=== PATIENT | male | born 1940 | race Caucasian/White ===

== ENCOUNTER → 2017-09-16 | Outpatient (CLI) | payer MEDICARE, BC | END | disposition home or self-care (01) | LOC: PCVCCLINIC 11:05 | DX: I25.10 Atherosclerotic heart disease of native coronary artery without angina pectoris (principal); I10 Essential (primary) hypertension; G45.9 Transient cerebral ischemic attack, unspecified; E78.00 Pure hypercholesterolemia, unspecified; E11.9 Type 2 diabetes mellitus without complications; I77.9 Disorder of arteries and arterioles, unspecified; I48.0 Paroxysmal atrial fibrillation; R20.0 Anesthesia of skin; R53.83 Other fatigue; R06.02 Shortness of breath; M79.604 Pain in right leg; M79.605 Pain in left leg; R94.31 Abnormal electrocardiogram [ECG] [EKG]; Z79.4 Long term (current) use of insulin; Z87.891 Personal history of nicotine dependence; Z79.899 Other long term (current) drug therapy; Z88.0 Allergy status to penicillin | CPT/HCPCS: 93005; G0463 ==

== ENCOUNTER → 2018-01-25 | Outpatient (CLI) | payer MEDICARE, BC ==
--- NOTE | 2018-01-25 13:53 | PCVCIMAG ---
APPROVED REPORT Study performed: 01/25/2018 13:04:02 EXAM: Comprehensive 2D, Doppler, and color-flow Echocardiogram Patient Location: Echo lab Status: routine BSA: 2.21 HR: 67 bpmBP: 120/78 mmHg Rhythm: Pacemaker Other Information Study Quality: Adequate Indications CVA/TIA Atrial Fibrillation Dyspnea Pacemaker CAD edema 2D Dimensions LVEF(%): 53.10 (>50%) IVSd: 10.65 (7-11mm) LVDd: 60.95 mm PWd: 11.46 (7-11mm) LVDs: 43.96 (25-40mm) Left Atrium: 51.87 (27-40mm) Aortic Root: 34.49 mm LV Single Plane 4CH: 56.47 % LV Single Plane 2CH: 48.64 %Huerta's LVEF: 52.56 % Biplane EF: 53.4 % Volumes Left Atrial Volume (Systole) Single Plane 4CH: 82.51 mLSingle Plane 2CH: 94.69 mL LA ESV Index: 44.00 mL/m2 Aortic Valve AoV Peak Skip.: 1.33 m/s AO Peak Gr.: 7.08 mmHgLVOT Max P.67 mmHg LVOT Max V: 0.96 m/s Mitral Valve E/A Ratio: 2.4 MV Decel. Time: 198.61 ms MV E Max Skip.: 0.90 m/s MV A Skip.: 0.38 m/s MV PHT: 57.60 ms IVRT: 96.89 ms Pulmonary Valve PV Peak Skip.: 0.95 m/sPV Peak Gr.: 3.62 mmHg Pulmonary Vein P Vein S: 0.35 m/s P Vein D: 0.81 m/s P Vein S/D Ratio: 0.43 Tricuspid Valve TR Peak Skip.: 3.82 m/s TR Peak Gr.: 58.23 mmHg Left Ventricle Left ventricle is mildly dilated to 6.1 cm. There is normal LV segmental wall motion. There is normal left ventricular wall thickness. Left ventricular systolic function is normal. The left ventricular ejection fraction is within the normal range. LVEF is 55-60%. 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 Right Ventricle The right ventricle is normal size. The right ventricular systolic function is normal. Atria Left atrium is moderately dilated. Right atrium is moderately dilated. Aortic Valve The aortic valve is normal in structure. No aortic regurgitation is present. There is no aortic valvular stenosis. Mitral Valve The mitral valve is normal in structure. Moderate mitral regurgitation. No evidence of mitral valve stenosis. Tricuspid Valve The tricuspid valve is normal in structure. Mild-moderate tricuspid regurgitation with elevated PAP of 65 mmHg. Pulmonic Valve The pulmonary valve is normal in structure. There is trace pulmonic valvular regurgitation. Great Vessels The aortic root is normal in size. IVC is normal in size and collapses with >50% inspiration Pericardium Trace pericardial effusion localized neart left ventricle measuring 1.1 cm. No hemodynamic changes and no tamponade physiology. There is no pleural effusion. <Conclusion> Left ventricle is mildly dilated to 6.1 cm. LVEF is 55-60%. 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 The right ventricle is normal size. Left atrium is moderately dilated. Right atrium is moderately dilated. The aortic valve is normal in structure. Moderate mitral regurgitation. Mild-moderate tricuspid regurgitation with elevated PAP of 65 mmHg. The aortic root is normal in size. Trace pericardial effusion localized neart left ventricle measuring 1.1 cm. No hemodynamic changes and no tamponade physiology.
== END | disposition home or self-care (01) ==
LOC: PCVCIMAG 14:28
PROVIDERS: ATTEND Internal Medicine Cardiovascular Disease
DX: I10 Essential (primary) hypertension (principal); I08.1 Rheumatic disorders of both mitral and tricuspid valves; E11.9 Type 2 diabetes mellitus without complications; I25.10 Atherosclerotic heart disease of native coronary artery without angina pectoris; I48.91 Unspecified atrial fibrillation; G45.9 Transient cerebral ischemic attack, unspecified; Z79.4 Long term (current) use of insulin; Z88.0 Allergy status to penicillin
CPT/HCPCS: 36415; 93306

== ENCOUNTER → 2018-04-26 | Outpatient (CLI) | payer MEDICARE, BC ==
[~2018-04-26] MED LIST: REGADENOSON 0.4 MG/5 ML DISP.SYRIN. IV ONE
--- NOTE | 2018-04-26 15:59 | PCVCIMAG ---
APPROVED REPORT Imaging Protocol: Rest Tc-99m/Stress Tc-99m 1 day Study performed: 04/26/2018 13:02:29 Indication: Afib, CAD, Pre Op Patient Location: Out-Patient Stress Nurse: Jenny Og RN, Basilia Gross RN IL Tech:Luan Morales ILTCB Ht: 5 ft 10 in Wt: 230 lbs BSA: 2.21 m2 HR: 78 bpm BP: 138/88 mmHg BMI: 32.9 Rhythm: AV Paced, RBBB Medical History Medical History: Age, Afib, CAD, DM, Pacemaker Medications: Norvasc, Eliquis, Clonodin, Clomzepam, Insulin, Altace, Zocor, Demadex Allergies: PCN Pretest Chest Pain Characteristics: No chest pain Exercise History: Sedentary Resting Data Rest SPECT myocardial perfusion imaging was performed in supine position 45 minutes following the intravenous injection of 11.3 mCi of Tc-99m Sestamibi. Time of rest injection: 1220 Date: 04/26/2018 Administration Route: IV Administration Site: Left AC Pharmacologic Stress Pharmacologic stress test was performed by injecting Regadenoson 0.4 mg IV push over 10-15 seconds immediately followed by the intravenous injection of 34.6 mCi of Tc-99m Sestamibi. Time of stress injection: 1330 Date: 04/26/2018 Administration Route: IV Administration Site: Left AC Gated Stress SPECT was performed 45 minutes after stress injection. The images were gated to evaluate regional wall motion and calculate left ventricular ejection fraction. Stress Test Details Stress Test: Pharmacologic stress testing performed using 0.4 mg of regadenoson per 5 mL given IV over 10 seconds. Reason for pharmacologic stress test: Wheelchair Bound. HRMax Heart Rate (APMHR): 144 bpm Resting HR: 78 bpmTarget HR (85% APMHR): 122 bpm Max HR Achieved: 92 bpm % of APMHR: 63 Recovery HR: 90 bpm BP Resting BP: 138/88 mmHg Max BP: 127/69 mmHg Recovery BP: 120/63 mmHg ECG Resting ECG: AV Paced, RBBB Stress ECG: AV Paced, RBBB Arrhythmia: None Recovery ECG: AV Paced, RBBB Clinical Reason for Termination: Completed protocol Stress Symptoms: None Symptoms resolved during recovery. Stress ECG Conclusion non diagnostic Study Quality Study: Good Study Data Post stress, the left ventricular ejection was 29%.. SSS: 8 SRS: 5 SDS: 3 TID = 0.96. Perfusion No evidence of stress induced ischemia or prior myocardial infarction. Nuclear Conclusion No evidence of stress induced ischemia or prior myocardial infarction. Post stress, the left ventricular ejection was 29%. No prior study available for comparison. Interpreted by: oJrge Akers MD Electronically Approved: 04/26/2018 15:41:00 <Conclusion> non diagnostic
== END | disposition home or self-care (01) ==
LOC: PCVCIMAG 11:56
PROVIDERS: ATTEND Internal Medicine Cardiovascular Disease
DX: I48.1 Persistent atrial fibrillation (principal); I25.10 Atherosclerotic heart disease of native coronary artery without angina pectoris; E11.9 Type 2 diabetes mellitus without complications; Z95.0 Presence of cardiac pacemaker
CPT/HCPCS: 78452; 93017; A9500; J2785

== ENCOUNTER → 2018-10-03 | Outpatient (CLI) | payer MEDICARE, BC | END | disposition home or self-care (01) | LOC: PCVCCLINIC 15:00 | PROVIDERS: ATTEND Internal Medicine Cardiovascular Disease | DX: I48.0 Paroxysmal atrial fibrillation (principal); I25.10 Atherosclerotic heart disease of native coronary artery without angina pectoris; E78.00 Pure hypercholesterolemia, unspecified; G45.9 Transient cerebral ischemic attack, unspecified; G20 Parkinson's disease; I45.9 Conduction disorder, unspecified; I10 Essential (primary) hypertension; E78.5 Hyperlipidemia, unspecified; I48.91 Unspecified atrial fibrillation; Z87.891 Personal history of nicotine dependence | CPT/HCPCS: 36415; 80061; 93280; G0463 ==

== ENCOUNTER → 2019-01-02 | Outpatient (CLI) | payer MEDICARE, BC | END | disposition home or self-care (01) | LOC: PCVCCLINIC 13:54 | PROVIDERS: ATTEND Internal Medicine Cardiovascular Disease | DX: I25.10 Atherosclerotic heart disease of native coronary artery without angina pectoris (principal); I48.0 Paroxysmal atrial fibrillation; I10 Essential (primary) hypertension; E78.00 Pure hypercholesterolemia, unspecified; G45.9 Transient cerebral ischemic attack, unspecified; I45.9 Conduction disorder, unspecified; M79.89 Other specified soft tissue disorders; E10.9 Type 1 diabetes mellitus without complications; E78.5 Hyperlipidemia, unspecified; Z88.0 Allergy status to penicillin | CPT/HCPCS: 93279; G0463 ==

== ENCOUNTER → 2019-04-07 | Outpatient (CLI) | payer MEDICARE, BC | END | disposition home or self-care (01) | LOC: PCVCCLINIC 15:30 | PROVIDERS: ATTEND Internal Medicine Cardiovascular Disease | DX: I25.10 Atherosclerotic heart disease of native coronary artery without angina pectoris (principal); I48.0 Paroxysmal atrial fibrillation; I10 Essential (primary) hypertension; E78.00 Pure hypercholesterolemia, unspecified; G20 Parkinson's disease; G45.9 Transient cerebral ischemic attack, unspecified; E78.5 Hyperlipidemia, unspecified; E10.9 Type 1 diabetes mellitus without complications; Z86.73 Personal history of transient ischemic attack (TIA), and cerebral infarction without residual deficits; Z79.899 Other long term (current) drug therapy; Z88.0 Allergy status to penicillin; Z95.0 Presence of cardiac pacemaker; Z87.891 Personal history of nicotine dependence | CPT/HCPCS: 36415; 80061; 93280; G0463 ==